=== PATIENT | female | born 1995 | race American Indian/Alaskan Native ===

== ENCOUNTER 2017-06-13 14:13 | Outpatient (CLI) | payer MEDICAID ==
[2017-06-13] MEDS ORDERED: CELESTONE SOLUSPAN IM SCH (15:00)
[2017-06-13] MEDS ORDERED: LACTATED RINGERS 500 ML IV ONE (15:00)
== END 2017-06-13 17:30 | disposition home or self-care (01) ==
LOC: TRG 14:13
PROVIDERS: ATTEND Obstetrics & Gynecology
DX: O47.02 False labor before 37 completed weeks of gestation, second trimester (principal); Z3A.32 32 weeks gestation of pregnancy
CPT/HCPCS: 59025; 96372; J0702

== ENCOUNTER 2017-06-14 16:47 | Outpatient (CLI) | payer MEDICAID ==
[2017-06-14] MEDS ORDERED: CELESTONE SOLUSPAN IM ONE ×2 (16:57→17:02)
[2017-06-14] MEDS ORDERED: LACTATED RINGERS 500 ML IV ONE (17:02)
== END 2017-06-14 17:15 | disposition home or self-care (01) ==
LOC: TRG 16:47
PROVIDERS: ATTEND Obstetrics & Gynecology
DX: O47.03 False labor before 37 completed weeks of gestation, third trimester (principal); Z3A.29 29 weeks gestation of pregnancy
CPT/HCPCS: 96372; J0702

== ENCOUNTER 2017-06-20 10:13 | Outpatient (CLI) | payer MEDICAID ==
[2017-06-20 10:32] VITALS: BP 111/56
[2017-06-20] MEDS ORDERED: LACTATED RINGERS 500 ML IV ONE (11:04)
[2017-06-20 11:24] LABS: Bilirubin,Urine NEG (Negative); Blood,Urine NEG (Negative); Ketones,Urine NEG (Negative); Leukocyte Esterase,Urine LG (Negative); Mucus,Urine 3+ /HPF; Nitrite,Urine NEG (Negative); Urobilinogen,Urine < 2.0 mg/dL (<2.0)
== END 2017-06-20 11:41 | disposition home or self-care (01) ==
LOC: TRG 10:13
PROVIDERS: ATTEND Obstetrics & Gynecology
DX: O47.03 False labor before 37 completed weeks of gestation, third trimester (principal); Z3A.29 29 weeks gestation of pregnancy
CPT/HCPCS: 59025; 81001

== ENCOUNTER 2017-07-10 10:19 | Outpatient (CLI) | payer MEDICAID ==
[2017-07-10] MEDS ORDERED: CELESTONE SOLUSPAN IM ONE (11:00)
== END 2017-07-10 11:10 | disposition home or self-care (01) ==
LOC: TRG 10:19
PROVIDERS: ATTEND Obstetrics & Gynecology
DX: O47.03 False labor before 37 completed weeks of gestation, third trimester (principal); Z3A.32 32 weeks gestation of pregnancy
CPT/HCPCS: 96372; J0702

== ENCOUNTER 2017-07-11 10:55 | Outpatient (CLI) | payer MEDICAID ==
[2017-07-11] MEDS ORDERED: CELESTONE SOLUSPAN IM ONE (11:35)
== END 2017-07-11 11:41 | disposition home or self-care (01) ==
LOC: TRG 10:55
PROVIDERS: ATTEND Obstetrics & Gynecology
DX: O47.03 False labor before 37 completed weeks of gestation, third trimester (principal); Z3A.32 32 weeks gestation of pregnancy
CPT/HCPCS: 96372; J0702

== ENCOUNTER 2017-07-12 09:47 | Observation (INO) | payer MEDICAID ==
[2017-07-12] MEDS ORDERED: LACTATED RINGERS 500 ML IV ONE (11:00)
[2017-07-12] MEDS ORDERED: CELESTONE SOLUSPAN IM ONE (13:30)
[2017-07-12] MEDS ORDERED: LACTATED RINGERS 2,000 ML ONE (13:53)
--- NOTE | 2017-07-12 13:54 | Ultrasound Report ---
BIOPHYSICAL PROFILE: Decreased motion. 0 - breathing movements 2 - movements 0 - posture and tone 2 - Qualitative amniotic fluid volume 4 - TOTAL SCORE OF POSSIBLE 8 Heart Rate (bpm) 133 Estimated age 30 weeks 3 days.
[2017-07-12 14:33] LABS: Hematocrit 31.1 % (30.3-42.9); Mean Corpuscular HGB Conc 32 % (30-34); Mean Corpuscular Volume 80 fl (79-97); Red Blood Count 3.91 M/mm3 (3.65-5.03); Red Cell Distribution Width 16.6 % (13.2-15.2)
[2017-07-12 14:44] LABS: Mean Corpuscular Hemoglobin 26 pg (28-32)
[2017-07-12 15:43] LABS: Basophils % (Manual) 0 % (0.0-1.8); Blastocytes % (Manual) 0 %; Eosinophils % (Manual) 0 % (0.0-4.3)
[2017-07-12 15:44] LABS: Anisocytosis 1+; Diff Status Complete; Poikilocytosis Few
[2017-07-12 15:45] LABS: Platelet Count 236 K/mm3 (140-440)
[2017-07-12 15:46] LABS: White Blood Count 13.4 K/mm3 (4.5-11.0)
[2017-07-12] MEDS ORDERED: LACTATED RINGERS 1,000 ML ONE (16:35)
[2017-07-12 16:53] VITALS: BP 90/46
--- NOTE | 2017-07-12 19:05 | History and Physical Report ---
History of Present Illness Date of examination: 07/12/17 Date of admission: 07/12/17 13:17 Chief complaint: decreased movement History of present illness: Pt is a 21 year old -Serbian female ELENA 09/03/17 at 32w3d who presents with "no movement" since last night. Upon entry to the unit, heart tones were present. She denies contractions, vaginal bleeding or leakage of fluid. She has had care at [facility] since 15 wks, h/o PPROM and delivery x 1, after 28 wk delivery in August 2016, obesity. She is receiving weekly progesterone injections and received steroids x 2 doses earlier this week. She is GBS unknown. Past History Past Medical History: no pertinent history Past Surgical History: cholecystectomy (09/13/16) Family/Genetic History: hypertension, cancer Social history: no significant social history - Obstetrical History Expected Date of Delivery: 09/03/17 Actual Gestation: 32 Week(s) 3 Day(s) : 3 Para: 2 Hx # Term Pregnancies: 0 Number of Pregnancies: 2 Spontaneous Abortions: 0 Induced : 0 Number of Living Children: 1 Medications and Allergies Allergies Allergy/AdvReac Type Severity Reaction Status Date / Time No Known Allergies Allergy Verified 07/12/17 12:57 Home Medications Medication Instructions Recorded Confirmed Last Taken Type Pnv with Ca,No.72/Iron/FA 1 tab PO DAILY 12/06/14 08/09/16 08/08/16 10:00 History [ Plus Tablet] Ibuprofen [Motrin 800 MG tab] 800 mg PO Q6H PRN #30 tablet 12/07/14 08/09/16 Unknown Rx HYDROcodone/APAP 5-325 [[place] 1 each PO Q6HR PRN #30 tablet 08/11/16 Unknown Rx 5/325] Ibuprofen [Motrin] 800 mg PO Q8HR PRN #60 tablet 08/11/16 Unknown Rx Review of Systems All systems: negative - Vital Signs Vital signs: Vital Signs Temp Pulse Resp BP Pulse Ox 98.4 F 88 18 115/53 98 07/12/17 10:35 07/12/17 10:35 07/12/17 10:35 07/12/17 10:35 07/12/17 10:35 Temp Pulse Resp BP Pulse Ox 98.6 F 108 H 18 90/46 98 10/05/17 16:30 07/12/17 17:41 07/12/17 10:35 07/12/17 16:55 07/12/17 17:41 - Physical Exam Breasts: Positive: deferred Cardiovascular: Regular rate Lungs: Positive: Clear to auscultation Abdomen: Positive: soft (obese, gravid ) Genitourinary (Female): Positive: normal external genitalia Uterus: Positive: enlarged (gravid ) Extremities: Positive: normal - Obstetrical FHR: category 2 Uterine Contraction Monitor Mode: External Results Result Diagrams: 07/12/17 13:42 Abnormal lab results 07/12/17 Range/Units 13:42 WBC 13.4 H (4.5-11.0) K/mm3 Hgb 10.0 L (10.1-14.3) gm/dl MCH 26 L (28-32) pg RDW 16.6 H (13.2-15.2) % Seg Neuts % (Manual) 80.0 H (40.0-70.0) % Lymphocytes % (Manual) 9.0 L (13.4-35.0) % Monocytes % (Manual) 11.0 H (0.0-7.3) % Seg Neutrophils # Man 0.0 L (1.8-7.7) K/mm3 Lymphocytes # (Manual) 0.0 L (1.2-5.4) K/mm3 All other labs normal. Assessment and Plan A: IUP at 32w3d Decreased movement BPP 4/8 H/o PPROM and Delivery Obesity H/o GBS unknown P: Admit for observation Repeat BPP in 4-6 hrs NPO
--- NOTE | 2017-07-12 19:13 | Event Note ---
Date: 07/12/17 Repeat BPP 03/15 (-2 for breathing, which is not unexpected secondary to recent steroid administration). NST reactive. Plan to discharge patient home with follow up in office on Sunday and .
--- NOTE | 2017-07-12 19:16 | Short Stay Summary ---
Short Stay Documentation Date of service: 07/12/17 - History H&P: dictated Social history: no significant social history - Allergies and Medications Current Medications: Allergies No Known Allergies Allergy (Verified 07/12/17 12:57) Home Medications Medication Instructions Recorded Confirmed Last Taken Type Pnv with Ca,No.72/Iron/FA 1 tab PO DAILY 12/06/14 08/09/16 08/08/16 10:00 History [ Plus Tablet] Ibuprofen [Motrin 800 MG tab] 800 mg PO Q6H PRN #30 tablet 12/07/14 08/09/16 Unknown Rx HYDROcodone/APAP 5-325 [[place] 1 each PO Q6HR PRN #30 tablet 08/11/16 Unknown Rx 5/325] Ibuprofen [Motrin] 800 mg PO Q8HR PRN #60 tablet 08/11/16 Unknown Rx - Physical exam Breasts: deferred - Hospital course Hospital course: Pt was admitted for observation and had two biophysical profiles and IV fluids during her hospital stay. She will follow up in office on Sunday, July 16, 2017. - Disposition Condition at discharge: Stable Disposition: DC-01 TO HOME OR SELFCARE - Discharge Diagnoses (1) Decreased movement Status: Acute Qualifiers: Fetus number: fetus 1 of multiple gestation Trimester: third trimester Qualified Code(s): O36.8131 - Decreased movements, third trimester, fetus 1 (2) Obesity affecting Status: Acute Qualifiers: Trimester: third trimester Qualified Code(s): O99.213 - Obesity complicating , third trimester (3) Status: Acute Qualifiers: Weeks of gestation: 32 weeks Qualified Code(s): Z3A.32 - 32 weeks gestation of Short Stay Discharge Plan Activity: no restrictions Weight Bearing Status: Full Weight Bearing Diet: regular Follow up with: OSMAN BERNAEB MD [Staff Physician] - 07/16/17
--- NOTE | 2017-07-13 11:10 | Ultrasound Report ---
BIOPHYSICAL PROFILE: 0 - breathing movements 2 - movements 2 - posture and tone 2 - Qualitative amniotic fluid volume 6 - TOTAL SCORE OF POSSIBLE 8 Heart Rate (bpm) 137 Gestation: Single Position: Cephalic Amniotic Fluid: ABRAHAM = 13 cm Placenta: Anterior Placental Grade: 1 Heart Rate: 137 BPM BPD: 715 cm = 30 w 1 d HC: 27.6 cm = 30 w 1 d AC: 27.9 cm = 32 w 0 d FL: 6.6 cm = 34 w 0 d HC/AC Ratio: 0.9 Cephalic Index: 85.8 Estimated Weight: 1930 grams Clinical age = 32 w 3 d EDC: 09/03/17 US Gest. Age = 31 w 4 d EDC: 09/09/17
--- NOTE | 2017-07-14 10:36 | Ultrasound Report ---
ULTRASOUND OB VELOCIMETRY UMBILICAL ARTERY History: Decreased movement Technique: Transabdominal ultrasound with spectral Doppler interrogation. Findings: 3 segments of the umbilical cord were evaluated. heart rate measures 137 beats per minute. The spectral waveforms are normal and persistent. No evidence for loss of end-diastolic flow. The S./D. ratio average measures 2.7. The resistive index average measures 0.64. Impression: No acute abnormality appreciated.
== END 2017-07-12 20:13 | disposition home or self-care (01) ==
LOC: TRG 09:47 → LD 13:17
PROVIDERS: ADMIT Obstetrics & Gynecology; ATTEND Obstetrics & Gynecology
DX: O36.8130 Decreased fetal movements, third trimester, not applicable or unspecified (principal); O99.213 Obesity complicating pregnancy, third trimester; Z3A.32 32 weeks gestation of pregnancy; Z82.49 Family history of ischemic heart disease and other diseases of the circulatory system; Z90.710 Acquired absence of both cervix and uterus
CPT/HCPCS: 36415; 76816; 76819; 76820; 85007; 85025; 86850; 86900; 86901; 96360; 96372; G0378; J0702; J7120

== ENCOUNTER 2017-07-24 10:20 | Observation (INO) | payer MEDICAID ==
[2017-07-24] MEDS ORDERED: AMBIEN PO PRN (10:57)
[2017-07-24] MEDS ORDERED: MILK OF MAGNESIA PO PRN (10:57)
[2017-07-24] MEDS ORDERED: BENADRYL PO PRN (10:57)
[2017-07-24] MEDS ORDERED: ROBITUSSIN DM PO PRN (10:57)
[2017-07-24] MEDS ORDERED: ZOFRAN IV PRN (10:57)
[2017-07-24] MEDS ORDERED: TYLENOL PO PRN (10:57)
[2017-07-24] MEDS ORDERED: DEEP SEA NS PRN (10:57)
[2017-07-24] MEDS ORDERED: MYLICON PO PRN (10:57)
[2017-07-24] MEDS ORDERED: COLACE PO PRN (10:57)
--- NOTE | 2017-07-24 10:57 | History and Physical Report ---
History of Present Illness Date of examination: 07/24/17 Chief complaint: sent from [facility] History of present illness: 21 year old -Maltese female ELENA 09/03/17 at 34w1d presents from [facility] clinic for secondary to low normal 7.11 cm, decreased movement and non -reactive NST for observation, IV hydration and repeat BPP in the AM. She denies vaginal bleeding or leakage of fluid. She denies regular contractions. She has had care at [facility] since 14 wks complicated by late entry to care, h/o PPROM and delivery x 2 with of second baby in 2016 and Morbid obesity. S/p betamethasone06/13 adn 06/14. She is GBS unknown. Past History Past Medical History: no pertinent history, other (obesity) Past Surgical History: cholecystectomy Family/Genetic History: hypertension, cancer Social history: no significant social history - Obstetrical History Expected Date of Delivery: 09/03/17 Actual Gestation: 34 Week(s) 1 Day(s) : 3 Para: 2 Hx # Term Pregnancies: 0 Number of Pregnancies: 2 Spontaneous Abortions: 0 Induced : 0 Number of Living Children: 1 Medications and Allergies Allergies Allergy/AdvReac Type Severity Reaction Status Date / Time No Known Allergies Allergy Verified 07/12/17 12:57 Home Medications Medication Instructions Recorded Confirmed Last Taken Type Pnv with Ca,No.72/Iron/FA 1 tab PO DAILY 12/06/14 08/09/16 08/08/16 10:00 History [ Plus Tablet] Ibuprofen [Motrin 800 MG tab] 800 mg PO Q6H PRN #30 tablet 12/07/14 08/09/16 Unknown Rx HYDROcodone/APAP 5-325 [[place] 1 each PO Q6HR PRN #30 tablet 08/11/16 Unknown Rx 5/325] Ibuprofen [Motrin] 800 mg PO Q8HR PRN #60 tablet 08/11/16 Unknown Rx Review of Systems All systems: negative - Physical Exam Breasts: Positive: deferred Cardiovascular: Regular rate Lungs: Positive: Clear to auscultation Abdomen: Positive: soft (gravid, obese) Uterus: Positive: enlarged (gravid) Extremities: Positive: normal Results Result Diagrams: 07/24/17 11:23 All other labs normal. Assessment and Plan A: IUP at 34w1d Decreased movement Low normal ABRAHAM Nonreactive NST H/o PPROM and delivery x 2 with one in 2016 on 17 hydroxy progesterone Morbid Obesity GBS unknown P: Admit for observation IV hydration Continuous monitoring Repeat BPP in AM MFM consult
[2017-07-24 11:43] LABS: Basophils % (Auto) 0.3 % (0.0-1.8); Eosinophils % (Auto) 0.4 % (0.0-4.3); Hematocrit 32.3 % (30.3-42.9); Hemoglobin 10.7 gm/dl (10.1-14.3); Mean Corpuscular HGB Conc 33 % (30-34); Mean Corpuscular Hemoglobin 26 pg (28-32); Mean Corpuscular Volume 78 fl (79-97); Platelet Count 196 K/mm3 (140-440); Red Blood Count 4.13 M/mm3 (3.65-5.03); White Blood Count 7.3 K/mm3 (4.5-11.0)
[2017-07-24] MEDS: LACTATED RINGERS 1,000 ML IV SCH ×2 (16:32→19:35)
[2017-07-25] MEDS: LACTATED RINGERS 1,000 ML IV SCH (01:37)
[2017-07-25 08:15] VITALS: BP 97/53
--- NOTE | 2017-07-25 08:45 | Ultrasound Report ---
ULTRASOUND BIOPHYSICAL PROFILE: History: well being, decreased movement Technique: Transabdominal ultrasound with Doppler interrogation. 2 - breathing movements 2 - movements 2 - posture and tone 2 - Qualitative amniotic fluid volume 8 - TOTAL SCORE OF POSSIBLE 8 Heart Rate (bpm) 125
--- NOTE | 2017-07-25 08:45 | Ultrasound Report ---
ULTRASOUND OB LIMITED History: well being, decreased movement Technique: Transabdominal ultrasound with Doppler interrogation. Gestation: Single Position: Cephalic Amniotic Fluid: Normal ABRAHAM = 13.5 cm Heart Rate: 141 BPM
[2017-07-25] MEDS ORDERED: PRENATAL VITAMIN PO SCH (10:00)
--- NOTE | 2017-07-25 11:45 | Consultation ---
History of Present Illness Reason for consult: other (Patient is ELENA 09/03/17 at 34w2d admitted from [facility] secondary to decreased ABRAHAM for EGA 7.11 cm, decreased movement and non-reactive NST for observation, IV hydration and repeat BPP in the AM. She denied vaginal bleeding or leakage of fluid She has had care at [facility] since 14 wks complicated by LPNC, h/o PPROM and delivery x 2 with of second baby in 2016 and Morbid obesity. S/p BMZ 06/13/17 and 06/14/17 . She is GBS status unknown. 07/25/17 [facility] consult Denies VB, ABD pain, LOF , and contractions . Patient admitts to [facility]. ) Past History Past Medical History: no pertinent history, other (obesity) Past Surgical History: cholecystectomy Family/Genetic History: hypertension, cancer - Obstetrical History : 3 Medications and Allergies Allergies Allergy/AdvReac Type Severity Reaction Status Date / Time No Known Allergies Allergy Verified 07/12/17 12:57 Home Medications Medication Instructions Recorded Confirmed Last Taken Type Pnv with Ca,No.72/Iron/FA 1 tab PO DAILY 12/06/14 07/24/17 07/24/17 History [ Plus Tablet] Active Meds: Active Medications Acetaminophen (Tylenol) 650 mg PO Q4H PRN PRN Reason: Pain MILD(1-3)/Fever >100.5/STEWART Diphenhydramine HCl (Benadryl) 25 mg PO Q6H PRN PRN Reason: Itching Docusate Sodium (Colace) 100 mg PO Q12H PRN PRN Reason: Constipation Guaifenesin (Robitussin Dm) 10 ml PO Q6H PRN PRN Reason: Cough Lactated Ringer's (Lactated Ringers) 1,000 mls @ 150 mls/hr IV DIRECT MER Last Admin: 07/25/17 01:37 Dose: 150 mls/hr Magnesium Hydroxide (Milk Of Magnesia) 30 ml PO QHS PRN PRN Reason: Laxative Effect Multivitamins/Iron/Calcium ( Vitamin) 1 each PO QDAY MER Last Admin: 07/25/17 10:03 Dose: 1 each Ondansetron HCl (Zofran) 4 mg IV Q6H PRN PRN Reason: Nausea And Vomiting Simethicone (Mylicon) 80 mg PO Q6H PRN PRN Reason: Gas pain Sodium Chloride (Deep Sea) 2 spray NS Q4H PRN PRN Reason: Congestion Zolpidem Tartrate (Ambien) 10 mg PO ONCE PRN PRN Reason: Sleep Last Admin: 07/24/17 21:35 Dose: 10 mg Review of Systems Constitutional: no fever Eyes: deferred Ears, nose, mouth and throat: deferred Cardiovascular: no chest pain, no shortness of breath Respiratory: no shortness of breath Gastrointestinal: no abdominal pain, no nausea, no vomiting Genitourinary: no vaginal bleeding, no vaginal discharge, no leakage of fluid, no contractions Rectal Exam: deferred Integumentary: no rash Neurological: no headaches Hematologic/Lymphatic: no easy bruising Allergic/Immunologic: no wheezing - Vital Signs Vital signs: Vital Signs Pulse Pulse Ox 108 H 99 07/24/17 11:03 07/24/17 11:03 Temp Pulse Resp BP Pulse Ox 98.1 F 96 H 16 97/53 97 07/25/17 08:11 07/25/17 08:17 07/25/17 08:11 07/25/17 08:17 07/25/17 08:16 - Physical Exam Breasts: Positive: deferred Cardiovascular: Regular rate Lungs: Positive: Normal air movement Abdomen: Negative: tenderness, guarding Uterus: Positive: other (gravid). Negative: tender Extremities: Positive: normal Deep Tendon Reflex Grade: Normal +2 - Obstetrical FHR: category 1 Uterine Contraction Monitor Mode: External Uterine Contraction Pattern: Absent Results Result Diagrams: 07/24/17 11:23 Abnormal lab results 07/24/17 Range/Units 11:23 MCV 78 L (79-97) fl MCH 26 L (28-32) pg RDW 17.0 H (13.2-15.2) % White % (Auto) 14.9 H (0.0-7.3) % White # 1.1 H (0.0-0.8) K/mm3 All other labs normal. Ultrasound: report reviewed (07/25/17 [facility] BPP 8/8 with ABRAHAM of 13.5 cm VTX + FHT 141 ( see chart for full consult) ) Assessment and Plan A: IUP at 34w2d Reported Decreased movement on 07/24/17 07/25/17 [facility] Reassuring ABRAHAM of 13.5 cm 07/25/17 [facility] BPP 05/15 CAT I tracing H/o PPROM and delivery x 2 with one in 2016 on 17 hydroxy progesterone Morbid Obesity AFM reported today P: February d/c home with precaution Close supervision with [facility] ( follow up in 3-4 days for [facility] surveillance) and OB Modify activities Continue increase PO hydration Kick counts Avoid caffeine consumption Co mangement with Dr Darrick Luna
--- NOTE | 2017-07-25 11:49 | Progress Note ---
Assessment and Plan IUP at 34w2d Decreased movement Low normal ABRAHAM Nonreactive NST H/o PPROM and delivery x 2 with one in 2016 on 17 hydroxy progesterone Morbid Obesity GBS unknown P: BPP / ABRAHAM normal 13 s/p hydration strict precatuions of ptl, pree, prom ad fkc reviewed Cat 1 strip d/c home to f/u with [facility] on Sunday ( 2 x weekly testing) Subjective - Subjective Date of service: 07/25/17 Principal diagnosis: Decreased movememnt hx of IUFD Patient reports: loss of fluid, movement normal, no new complaints, no vaginal bleeding, no contractions Objective - Vital Signs Vital Signs: Vital Signs - 12hr 07/24/17 07/24/17 07/25/17 23:50 23:55 00:00 Temperature Pulse Rate 93 H 97 H 98 H Respiratory Rate Blood Pressure Blood Pressure [Right] O2 Sat by Pulse 97 97 96 Oximetry 07/25/17 07/25/17 07/25/17 00:05 00:10 00:15 Temperature Pulse Rate 100 H 96 H 96 H Respiratory Rate Blood Pressure Blood Pressure [Right] O2 Sat by Pulse 96 96 97 Oximetry 07/25/17 07/25/17 07/25/17 00:22 00:27 00:32 Temperature Pulse Rate 107 H 94 H 93 H Respiratory Rate Blood Pressure Blood Pressure [Right] O2 Sat by Pulse 97 98 98 Oximetry 07/25/17 07/25/17 07/25/17 00:37 00:42 00:47 Temperature Pulse Rate 98 H 91 H 92 H Respiratory Rate Blood Pressure Blood Pressure [Right] O2 Sat by Pulse 98 98 97 Oximetry 07/25/17 07/25/17 07/25/17 00:52 00:57 01:02 Temperature Pulse Rate 98 H 90 111 H Respiratory Rate Blood Pressure Blood Pressure [Right] O2 Sat by Pulse 99 97 95 Oximetry 07/25/17 07/25/17 07/25/17 01:07 01:15 01:20 Temperature Pulse Rate 94 H 124 H 97 H Respiratory Rate Blood Pressure Blood Pressure [Right] O2 Sat by Pulse 99 100 97 Oximetry 07/25/17 07/25/17 07/25/17 01:25 01:30 01:33 Temperature 98.1 F Pulse Rate 97 H 95 H Respiratory 20 Rate Blood Pressure Blood Pressure [Right] O2 Sat by Pulse 97 96 Oximetry 07/25/17 07/25/17 07/25/17 01:35 01:36 01:40 Temperature Pulse Rate 102 H 100 H 93 H Respiratory Rate Blood Pressure 98/57 Blood Pressure [Right] O2 Sat by Pulse 97 96 Oximetry 07/25/17 07/25/17 07/25/17 01:45 01:50 01:55 Temperature Pulse Rate 93 H 94 H 92 H Respiratory Rate Blood Pressure Blood Pressure [Right] O2 Sat by Pulse 95 96 96 Oximetry 07/25/17 07/25/17 07/25/17 02:00 02:05 02:10 Temperature Pulse Rate 93 H 96 H 94 H Respiratory Rate Blood Pressure Blood Pressure [Right] O2 Sat by Pulse 97 95 96 Oximetry 07/25/17 07/25/17 07/25/17 02:15 02:20 02:23 Temperature Pulse Rate 97 H 100 H 98 H Respiratory Rate Blood Pressure Blood Pressure [Right] O2 Sat by Pulse 96 95 94 Oximetry 07/25/17 07/25/17 07/25/17 02:29 02:34 02:39 Temperature Pulse Rate 103 H 98 H 87 Respiratory Rate Blood Pressure Blood Pressure [Right] O2 Sat by Pulse 99 96 96 Oximetry 07/25/17 07/25/17 07/25/17 02:44 02:45 02:49 Temperature Pulse Rate 98 H 96 H 97 H Respiratory Rate Blood Pressure Blood Pressure [Right] O2 Sat by Pulse 95 94 94 Oximetry 07/25/17 07/25/17 07/25/17 02:52 02:54 02:59 Temperature Pulse Rate 99 H 104 H 97 H Respiratory Rate Blood Pressure Blood Pressure [Right] O2 Sat by Pulse 93 97 96 Oximetry 07/25/17 07/25/17 07/25/17 03:04 03:05 03:09 Temperature Pulse Rate 98 H 100 H 96 H Respiratory Rate Blood Pressure Blood Pressure [Right] O2 Sat by Pulse 96 94 95 Oximetry 07/25/17 07/25/17 07/25/17 03:14 03:19 03:24 Temperature Pulse Rate 99 H 97 H 113 H Respiratory Rate Blood Pressure Blood Pressure [Right] O2 Sat by Pulse 96 95 96 Oximetry 07/25/17 07/25/17 07/25/17 03:29 03:34 03:39 Temperature Pulse Rate 109 H 102 H 98 H Respiratory Rate Blood Pressure Blood Pressure [Right] O2 Sat by Pulse 99 97 97 Oximetry 07/25/17 07/25/17 07/25/17 03:44 03:50 03:55 Temperature Pulse Rate 104 H 101 H 96 H Respiratory Rate Blood Pressure Blood Pressure [Right] O2 Sat by Pulse 97 98 98 Oximetry 07/25/17 07/25/17 07/25/17 04:00 04:05 04:10 Temperature Pulse Rate 100 H 102 H 102 H Respiratory Rate Blood Pressure Blood Pressure [Right] O2 Sat by Pulse 98 97 98 Oximetry 07/25/17 07/25/17 07/25/17 04:15 04:20 04:24 Temperature Pulse Rate 104 H 101 H 108 H Respiratory Rate Blood Pressure Blood Pressure [Right] O2 Sat by Pulse 97 97 98 Oximetry 07/25/17 07/25/17 07/25/17 04:33 04:38 04:43 Temperature Pulse Rate 107 H 96 H 97 H Respiratory Rate Blood Pressure Blood Pressure [Right] O2 Sat by Pulse 98 96 96 Oximetry 07/25/17 07/25/17 07/25/17 04:48 04:53 04:58 Temperature 98.2 F Pulse Rate 103 H 99 H 99 H Respiratory 22 Rate Blood Pressure Blood Pressure [Right] O2 Sat by Pulse 96 97 97 Oximetry 07/25/17 07/25/17 07/25/17 05:01 05:03 05:08 Temperature Pulse Rate 100 H 97 H 93 H Respiratory Rate Blood Pressure 104/52 Blood Pressure [Right] O2 Sat by Pulse 96 97 Oximetry 07/25/17 07/25/17 07/25/17 05:13 05:19 05:24 Temperature Pulse Rate 103 H 100 H 102 H Respiratory Rate Blood Pressure Blood Pressure [Right] O2 Sat by Pulse 97 98 97 Oximetry 07/25/17 07/25/17 07/25/17 05:29 05:34 05:39 Temperature Pulse Rate 98 H 101 H 94 H Respiratory Rate Blood Pressure Blood Pressure [Right] O2 Sat by Pulse 97 96 97 Oximetry 07/25/17 07/25/17 07/25/17 05:44 05:49 05:54 Temperature Pulse Rate 101 H 90 97 H Respiratory Rate Blood Pressure Blood Pressure [Right] O2 Sat by Pulse 96 96 97 Oximetry 07/25/17 07/25/17 07/25/17 05:59 06:04 06:09 Temperature Pulse Rate 90 89 96 H Respiratory Rate Blood Pressure Blood Pressure [Right] O2 Sat by Pulse 97 96 97 Oximetry 07/25/17 07/25/17 07/25/17 06:14 06:19 06:24 Temperature Pulse Rate 95 H 96 H 96 H Respiratory Rate Blood Pressure Blood Pressure [Right] O2 Sat by Pulse 97 97 96 Oximetry 07/25/17 07/25/17 07/25/17 06:48 06:53 06:58 Temperature Pulse Rate 98 H 95 H 95 H Respiratory Rate Blood Pressure Blood Pressure [Right] O2 Sat by Pulse 98 97 97 Oximetry 07/25/17 07/25/17 07/25/17 07:03 07:08 07:13 Temperature Pulse Rate 92 H 94 H 92 H Respiratory Rate Blood Pressure Blood Pressure [Right] O2 Sat by Pulse 96 97 97 Oximetry 07/25/17 07/25/17 07/25/17 07:18 07:23 07:28 Temperature Pulse Rate 91 H 94 H 91 H Respiratory Rate Blood Pressure Blood Pressure [Right] O2 Sat by Pulse 97 96 96 Oximetry 07/25/17 07/25/17 07/25/17 07:33 07:38 07:43 Temperature Pulse Rate 87 98 H 97 H Respiratory Rate Blood Pressure Blood Pressure [Right] O2 Sat by Pulse 97 96 97 Oximetry 07/25/17 07/25/17 07/25/17 07:44 07:48 07:53 Temperature Pulse Rate 97 H 113 H 109 H Respiratory Rate Blood Pressure Blood Pressure [Right] O2 Sat by Pulse 93 98 99 Oximetry 07/25/17 07/25/17 07/25/17 08:01 08:06 08:11 Temperature 98.1 F Pulse Rate 94 H 92 H 97 H Respiratory 16 Rate Blood Pressure Blood Pressure 97/53 [Right] O2 Sat by Pulse 99 97 97 Oximetry 07/25/17 07/25/17 08:16 08:17 Temperature Pulse Rate 96 H 96 H Respiratory Rate Blood Pressure 97/53 Blood Pressure [Right] O2 Sat by Pulse 97 Oximetry - Exam Breasts: normal Cardiovascular: Regular rate, Normal S1 Lungs: Clear to auscultation, Normal air movement Abdomen: Present: normal appearance, soft, normal bowel sounds. Absent: distention, tenderness, guarding Vulva: both: normal Uterus: Present: normal, firm, fundal height above umbilicus FHR: category 1 Uterine Contraction Pattern: Absent Uterine Tone Measurement Phase: Resting Deep Tendon Reflex Grade: Normal +2 - Labs Labs: Abnormal Labs 07/24/17 11:23 MCV 78 L MCH 26 L RDW 17.0 H [place] % (Auto) 14.9 H [place] # 1.1 H Laboratory Results - last 24 hr 07/24/17 11:27 Antibody Screen Negative
--- NOTE | 2017-07-25 11:51 | Discharge Summary ---
Providers - Providers Date of Admission: 07/24/17 10:57 Date of discharge: 07/25/17 Attending physician: OSMAN BERNABE 07/25/17 07:00 Consult to Physician [CONS] Routine Consulting Provider: ESTEE HUSAIN Reason For Exam: IUP at 34 wks, decreased FM, low normal ABRAHAM Place consult to:: HERLINDA Notified:: MARAL Phone number called:: [phone] Was contact made?: Yes If yes, spoke with:: MARAL Time called:: 08:45 Primary care physician: OSMAN BERNABE Hospitalization Reason for admission: other (decreased FM ) Discharge diagnosis: other (Patient had BPP 05/15 abraham 13. cat 1 strip. f/u with MFM on Sunday. Strict precatuions given ) Condition at discharge: Good Disposition: DC-01 TO HOME OR SELFCARE Plan - Provider Discharge Summary Additional instructions: [] Smoking cessation referral if applicable(refer to patient education folder for contact #) [] Refer to [facility]'s [facility] Booklet Call your doctor immediately for: * Fever > 100.5 * Heavy vaginal bleeding ( >1 pad per hour) * Severe persistent headache * Shortness of breath * Reddened, hot, painful area to leg or breast * Drainage or odor from incision. * Keep incision clean and dry at all times and follow doctor's instructions regarding bathing/showering - Follow up plan Follow up: OSMAN BERNABE MD [Primary Care Provider] - 7 Days
== END 2017-07-25 12:33 | disposition home or self-care (01) ==
LOC: TRG 10:20 → LD 10:21 → TRG 10:57
PROVIDERS: ADMIT Obstetrics & Gynecology; ATTEND Obstetrics & Gynecology
DX: O36.8130 Decreased fetal movements, third trimester, not applicable or unspecified (principal); O99.213 Obesity complicating pregnancy, third trimester; Z3A.34 34 weeks gestation of pregnancy; Z90.49 Acquired absence of other specified parts of digestive tract; Z82.49 Family history of ischemic heart disease and other diseases of the circulatory system; Z80.9 Family history of malignant neoplasm, unspecified
CPT/HCPCS: 36415; 76815; 76819; 85025; 86850; 86900; 86901; 96360; 96361; G0378; J7120

== ENCOUNTER 2017-07-30 10:59 | Outpatient (CLI) | payer MEDICAID ==
[2017-07-30 11:29] VITALS: BP 97/49
[2017-07-30 12:51] LABS: Bacteria,Urine 1+ /HPF (Negative); Bilirubin,Urine NEG (Negative); Blood,Urine NEG (Negative); Ketones,Urine NEG (Negative); Leukocyte Esterase,Urine LG (Negative); Mucus,Urine 3+ /HPF; Nitrite,Urine NEG (Negative); Protein,Urine <15 mg/dL mg/dL (Negative)
--- NOTE | 2017-07-30 12:51 | Ultrasound Report ---
BIOPHYSICAL PROFILE: INDICATION: well being, decreased movement. COMPARISON: 07/25/2017. TECHNIQUE: Transabdominal ultrasound with Doppler interrogation. 2 - breathing movements 2 - movements 2 - posture and tone 2 - Qualitative amniotic fluid volume 8 - TOTAL SCORE OF POSSIBLE 8 Heart Rate (bpm) 133 CONCLUSION: Findings, as above.
--- NOTE | 2017-07-30 12:53 | Ultrasound Report ---
OB LIMITED INDICATION: well being, decreased movement, ABRAHAM. COMPARISON: 07/25/2017 TECHNIQUE: Transabdominal grayscale ultrasound with Doppler interrogation. Gestation: [place] Position: Cephalic Amniotic Fluid: WNL (7-24 cm) ABRAHAM = 7.3 cm Heart Rate: 133 BPM CONCLUSION: Findings, as above.
--- NOTE | 2017-07-30 12:56 | Ultrasound Report ---
ULTRASOUND OB VELOCIMETRY UMBILICAL ARTERY: HISTORY: well-being, decreased movement. COMPARISON: 07/12/2017. FINDINGS: Transabdominal imaging with spectral Doppler interrogation. 3 separate segments of the cord were evaluated. heart rate measures 133 beats per minute. Free loop S/D ratio in the examined loops are 2.92, 3.07 and 2.66 with average S/D ratio = 2.88. Normal waveform. Flow pattern is persistent. Free loop RI in the examined loops are 0.66, 0.67 and 0.62 with average RI= 0.65. Normal waveform. Flow pattern is persistent. CONCLUSION: Normal and persistent spectral waveforms are demonstrated throughout. The S/D ratio average measures 2.88. The resistive index average measures 0.65. Thank you for the opportunity to participate in this patient's care.
== END 2017-07-30 12:55 | disposition home or self-care (01) ==
LOC: TRG 10:59
PROVIDERS: ATTEND Obstetrics & Gynecology
DX: O36.8130 Decreased fetal movements, third trimester, not applicable or unspecified (principal); O47.03 False labor before 37 completed weeks of gestation, third trimester; Z3A.35 35 weeks gestation of pregnancy
CPT/HCPCS: 59025; 76815; 76819; 76820; 81001

== ENCOUNTER 2017-08-20 11:00 | Inpatient (IN) | payer MEDICAID ==
[2017-08-20] MEDS ORDERED: PITOCin/NS 20 UNIT/1000ML DRIP 20 UNITS/1,000 ML BAG IV SCH (14:00)
[2017-08-20] MEDS ORDERED: LACTATED RINGERS 1,000 ML IV SCH ×2 (14:00)
[2017-08-20] MEDS ORDERED: XYLOCAINE 2% INFILTRATI ONE (14:00)
--- NOTE | 2017-08-20 14:10 | History and Physical Report ---
History of Present Illness Date of examination: 08/20/17 Date of admission: 08/20/17 11:00 Chief complaint: decreased amniotic fluid History of present illness: 22y/o @ 38+0 weeks presents with findings of oligohydramnios during her evaluation with [facility]. Her course is complicated by 2 prior deliveries at 33 & 27 weeks. She has had a demise secondary to complications associated with prematurity. The patient has received 17-P during this along with betamethasone injections on 06/13 & 06/14. The patient was sent to L&D for induction. GBS negative. Past History Past Medical History: no pertinent history Past Surgical History: cholecystectomy Social history: single - Obstetrical History Expected Date of Delivery: 09/03/17 Actual Gestation: 38 Week(s) 0 Day(s) : 3 Para: 2 Hx # Term Pregnancies: 0 Number of Pregnancies: 2 Spontaneous Abortions: 0 Induced : 0 Number of Living Children: 1 Medications and Allergies Allergies Allergy/AdvReac Type Severity Reaction Status Date / Time No Known Allergies Allergy Verified 07/12/17 12:57 Home Medications Medication Instructions Recorded Confirmed Last Taken Type Pnv with Ca,No.72/Iron/FA 1 tab PO DAILY 12/06/14 08/20/17 08/20/17 History [ Plus Tablet] Active Meds: Active Medications Butorphanol Tartrate (Stadol) 2 mg IV Q2H PRN PRN Reason: Pain , Severe (7-10) Ephedrine Sulfate (Ephedrine Sulfate) 10 mg IV Q2M PRN PRN Reason: Hypotension Stop: 08/20/17 14:05 Lactated Ringer's (Lactated Ringers) 1,000 mls @ 125 mls/hr IV DIRECT MER Misoprostol (Cytotec) 25 mcg VG Q4H PRN PRN Reason: Cervical Ripening Review of Systems All systems: negative Genitourinary: no leakage of fluid - Vital Signs Vital signs: Vital Signs Temp Pulse Resp BP Pulse Ox 97.8 F 110 H 18 111/64 98 08/20/17 11:52 08/20/17 11:52 08/20/17 11:52 08/20/17 11:52 08/20/17 11:52 Temp Pulse Resp BP Pulse Ox 97.8 F 110 H 18 111/64 98 08/20/17 11:52 11/13/17 11:55 08/20/17 11:52 08/20/17 11:55 08/20/17 11:52 - Physical Exam Breasts: Positive: deferred Cardiovascular: Regular rate Lungs: Positive: Clear to auscultation Abdomen: Positive: normal appearance Results All other labs normal. Assessment and Plan - Patient Problems (1) Oligohydramnios Current Visit: Yes Status: Acute Qualifiers: Fetus number: F Trimester: T Plan to address problem: admit for induction of labor
[2017-08-20 14:24] LABS: Hematocrit 32.6 % (30.3-42.9); Hemoglobin 10.6 gm/dl (10.1-14.3); Mean Corpuscular HGB Conc 33 % (30-34); Mean Corpuscular Volume 78 fl (79-97); Platelet Count 182 K/mm3 (140-440); Red Blood Count 4.16 M/mm3 (3.65-5.03); Red Cell Distribution Width 17.7 % (13.2-15.2); White Blood Count 5.4 K/mm3 (4.5-11.0)
[2017-08-20 14:32] LABS: Mean Corpuscular Hemoglobin 26 pg (28-32)
[2017-08-20] MEDS ORDERED: BRETHINE IVP PRN (15:00)
[2017-08-20] MEDS: CYTOTEC VG PRN ×2 (15:00→18:55)
[2017-08-20] MEDS ORDERED: PITOCin/NS 30 UNIT/500ML 30 UNITS/500 ML BAG IV SCH (15:00)
[2017-08-20] MEDS ORDERED: STADOL IV PRN (15:00)
[2017-08-20] MEDS ORDERED: BRETHINE SUB-Q PRN (15:00)
[2017-08-20] MEDS ORDERED: ePHEDrine SULFATE IV PRN (15:00)
[2017-08-20] MEDS ORDERED: MINERAL OIL PO PRN (22:00)
[2017-08-21] MEDS ORDERED: METHERGINE IM ONE ×2 (12:50→12:56)
--- NOTE | 2017-08-21 12:56 | Procedure Note ---
OB Delivery Note - Delivery Date of Delivery: 08/21/17 (7.0oz male @ 1234) Surgeon: YANIRA SOSA Estimated blood loss: 300cc - Vaginal Delivery presentation: vertex Delivery position: OA Intrapartum events: hydramnios (oligo) Delivery induction: misoprostol Delivery augmentation: pitocin Delivery monitor: external FHT, external uterine, internal FHT Route of delivery: Delivery placenta: spontaneous Delivery cord: 3 umbilical vessels Delivery laceration: 1st degree (vaginal, approximates, hemostatis, no stitches) Anesthesia: none - A at 1 minute: 8 at 5 minutes: 9 Gender: Male (Pushed to complete. Spont. cry. Dried and placed skin to skin. Spont. placenta, trailing membranes, gently teased. FF2 below U, ML. Pitocin infusing. Bleeding continious flow, fundus messagesd to firm. Bleeding scant. Methergine 0.2mg IM given.)
[2017-08-21] MEDS: NORCO 5/325 PO PRN ×2 (13:06→20:30)
[2017-08-21] MEDS: MOTRIN PO PRN ×2 (13:07→20:30)
--- NOTE | 2017-08-22 07:41 | Progress Note ---
Assessment and Plan - Patient Problems (1) Oligohydramnios Current Visit: Yes Status: Acute Qualifiers: Fetus number: F Trimester: T Plan to address problem: Patient doing well Discharge home Subjective - Subjective Date of service: 08/22/17 Interval history: The patient is without any significant complaints today. She is tolerating a regular diet without complication. Her pain is well-controlled. Patient reports: appetite normal, voiding normally, pain well controlled [place]: doing well Objective - Vital Signs Latest vital signs: Vital Signs Temp Pulse Resp BP BP Pulse Ox 08/22/17 04:30 98.6 F 77 18 121/78 08/22/17 00:30 98.6 F 69 16 101/78 08/21/17 19:30 98.6 F 69 18 101/76 08/21/17 16:05 98.0 F 88 18 114/67 08/21/17 13:16 76 125/70 08/21/17 12:54 85 99 08/21/17 12:49 87 118/56 99 08/21/17 12:26 73 98 08/21/17 12:21 73 100 08/21/17 12:16 89 97 08/21/17 12:11 91 H 100 08/21/17 12:06 81 98 08/21/17 12:01 97 H 98 08/21/17 11:56 63 96 08/21/17 11:51 73 95 08/21/17 11:46 74 97 08/21/17 11:41 66 97 08/21/17 11:36 88 99 08/21/17 11:31 94 H 96 08/21/17 11:26 66 99 08/21/17 11:21 83 100 08/21/17 11:16 71 96 08/21/17 11:11 68 97 08/21/17 11:06 57 L 100 08/21/17 11:01 95 H 95 08/21/17 10:56 62 96 08/21/17 10:51 69 98 08/21/17 10:46 86 96 08/21/17 10:41 65 97 08/21/17 10:36 89 96 08/21/17 10:31 71 96 08/21/17 10:25 76 97 08/21/17 10:21 62 98 08/21/17 10:16 67 97 08/21/17 10:11 85 96 08/21/17 10:06 87 96 08/21/17 10:01 88 96 08/21/17 09:56 71 95 08/21/17 09:51 72 96 08/21/17 09:46 74 97 08/21/17 09:41 75 96 08/21/17 09:36 76 97 08/21/17 09:30 67 96 08/21/17 09:26 73 95 08/21/17 09:20 79 97 08/21/17 09:16 91 H 96 08/21/17 09:11 81 95 08/21/17 09:06 87 94 08/21/17 09:01 78 96 08/21/17 08:56 79 95 08/21/17 08:51 71 94 08/21/17 08:50 65 94 Intake and Output 08/21/17 08/22/17 08/22/17 22:59 06:59 14:59 Intake Total 660 450 Output Total 300 800 Balance 360 -350 Intake: Oral 360 450 Intake, Free Water 300 Output: Urine 300 800 Void 300 800 Other: Total, Intake Amount 360 200 Total, Output Amount 200 800 # Voids Void 1 1 - Exam Abdomen: Present: normal appearance, soft Uterus: Present: normal, firm
--- NOTE | 2017-08-22 07:42 | Discharge Summary ---
Providers - Providers Date of Admission: 08/20/17 11:00 Date of discharge: 08/22/17 Attending physician: TIM BARNETT Primary care physician: TIM BARNETT Hospitalization Reason for admission: induction of labor Delivery: Other procedures: none complications: none Discharge diagnosis: IUP at term delivered baby: male Hospital course: The patient was admitted for induction of labor secondary to oligohydramnios. The patient had a successful vaginal delivery. Her course was uncomplicated. Condition at discharge: Good Disposition: DC-01 TO HOME OR SELFCARE - Discharge Diagnoses (1) Oligohydramnios Status: Acute Qualifiers: Fetus number: F Trimester: T Plan - Discharge Medications Prescriptions: HYDROcodone/APAP 5-325 [[place] 5/325] 1 each PO Q6HR PRN #30 tablet PRN Reason: Pain Ibuprofen [Motrin] 800 mg PO Q8HR PRN #60 tablet PRN Reason: Pain - Provider Discharge Summary Activity: no sex for 6 weeks, no heavy lifting 4 weeks, no strenuous exercise Diet: routine Instructions: routine Additional instructions: [] Smoking cessation referral if applicable(refer to patient education folder for contact #) [] Refer to [facility] Booklet Call your doctor immediately for: * Fever > 100.5 * Heavy vaginal bleeding ( >1 pad per hour) * Severe persistent headache * Shortness of breath * Reddened, hot, painful area to leg or breast * Follow-up in 4 weeks for visit - Follow up plan
[2017-08-22 09:00] VITALS: BP 121/72
== END 2017-08-22 15:06 | disposition home or self-care (01) | DRG 775 ==
LOC: LD 11:00 → OB 08-21 15:52
PROVIDERS: ADMIT Obstetrics & Gynecology; ATTEND Obstetrics & Gynecology
PROC: 10E0XZZ Delivery of Products of Conception, External Approach (ICD-10-PCS; principal; 2017-08-20)
DX: O41.03X0 Oligohydramnios, third trimester, not applicable or unspecified (principal); O70.0 First degree perineal laceration during delivery; Z3A.38 38 weeks gestation of pregnancy; Z37.0 Single live birth; Z90.49 Acquired absence of other specified parts of digestive tract
CPT/HCPCS: 36415; 85027; 86592; 86850; 86900; 86901; 88307; 99211; G0463; J0595; J2210; J2590; J7120

== ENCOUNTER 2020-10-29 15:09 | Emergency (ER) | payer MEDICAID, SELFPAY ==
[2020-10-29 16:14] LABS: Hematocrit 40.4 % (30.3-42.9); Hemoglobin 13.3 gm/dl (10.1-14.3); Mean Corpuscular HGB Conc 33 % (30-34); Mean Corpuscular Volume 88 fl (79-97); Platelet Count 291 K/mm3 (140-440); Red Blood Count 4.62 M/mm3 (3.65-5.03); Red Cell Distribution Width 14.5 % (13.2-15.2)
[2020-10-29 16:39] LABS: Alanine Aminotransferase 18 units/L (7-56); Albumin 3.9 g/dL (3.9-5); BUN/Creatinine Ratio 8; Blood Urea Nitrogen 7 mg/dL (7-17); Hemolysis Index 6
--- NOTE | 2020-10-29 17:23 | Ultrasound Report ---
US OB <= 14 weeks fetus INDICATION / CLINICAL INFORMATION: Ectopic . COMPARISON: None available. FINDINGS: No intrauterine is seen. Adjacent to the right ovary is a 2.5 cm complex mass with increase d vascularity. The left ovary is normal. IMPRESSION: 2.5 cm complex mass with increased vascularity adjacent to the right ovary. An ectopic shar ot be excluded CRITICAL RESULT: Time of Discovery: 1605 central time Time of Communication: 1617 central time Licensed Practitioner Receiving Report: Tasha Camilo RN Read Back Performed: Yes. Signer Name: Nitish Benjamin MD FACR Signed: 10/29/2020 5:19 PM Workstation Name: [id number]
--- NOTE | 2020-10-29 17:26 | Ultrasound Report ---
ULTRASOUND OBSTETRIC INDICATION / CLINICAL INFORMATION: Ectopic . Clinical Gestational Age (GA): 8 weeks 5 days TECHNIQUE: Transvaginal. COMPARISON: None available. FINDINGS: UTERUS: The uterus is anteverted and anteflexed and normal in appearance. The endometrium is within n ormal limits, measuring up to 4 mm in thickness. There is no evidence of intrauterine gestational sac . ADNEXA: The left ovary is unremarkable in appearance. A corpus luteum is identified within the right ovary. There is a complex mass adjacent to the right ovary measuring up to approximately 2.5 x 2.0 cm . There is a central cystic component measuring up to 9 mm which may reflect a gestational sac. No de finite yolk sac or pole are identified within the cystic component. FREE FLUID: Trace pelvic free fluid. ADDITIONAL FINDINGS: None. IMPRESSION: 1. A complex mass adjacent to the right ovary is suggestive of an ectopic . No sonographic e vidence for rupture. The above finding was discussed with TERESSA Palafox, at 4:19 PM central time on 10/29/2020. Signer Name: Elayne Nieves MD Signed: 10/29/2020 5:22 PM Workstation Name: [id number]
[2020-10-29 18:25] LABS: Total Cells Counted 100
[2020-10-29 18:27] LABS: Eosinophils % (Manual) 0 % (0.0-4.3)
[2020-10-29 18:31] LABS: Platelet Estimate Consistent w Auto
[2020-10-29 18:34] LABS: Anisocytosis Few; Large Platelets Few
--- NOTE | 2020-10-29 18:34 | Emergency Department Report ---
ED HPI - General Chief complaint: Abdominal Pain Stated complaint: POSSIBLE ECTOPIC Time Seen by Provider: 10/29/20 17:21 Source: patient Mode of arrival: Ambulatory Limitations: No Limitations - History of Present Illness Initial comments: Patient is a 25-year-old F [place] female who is in the early stages of who has been recently having her hCG trended. Patient has had some right lower quadrant pain. Between 10/13/2020 and 10/20/2020 her quant only genoveva from 3 69-60 579. Patient had no IUP seen at those times. Patient was sent in for concern for ectopic . Has some right lower quadrant discomfort. Dr. Vipin Bernabe her COMMUNICATIONS EDITOR wanted her to receive methotrexate. Patient's pain is estimated 4 out of 10 in severity. She denies any vaginal bleeding fevers chills nausea vomiting or diarrhea. - Related Data Home Medications Medication Instructions Recorded Confirmed Last Taken Pnv with Ca,No.72/Iron/FA 1 tab PO DAILY 12/06/14 08/20/17 08/20/17 [ Plus Tablet] Previous Rx's Medication Instructions Recorded Last Taken Type HYDROcodone/APAP 5-325 [[place] 1 each PO Q6HR PRN #30 tablet 08/22/17 Unknown Rx 5/325] Ibuprofen [Motrin] 800 mg PO Q8HR PRN #60 tablet 08/22/17 Unknown Rx Allergies Allergy/AdvReac Type Severity Reaction Status Date / Time No Known Allergies Allergy Verified 07/12/17 12:57 ED Review of Systems ROS: Stated complaint: POSSIBLE ECTOPIC Other details as noted in HPI Comment: All other systems reviewed and negative ED Past Medical Hx - Past Medical History Previous Medical History?: No Hx Hypertension: No Hx Congestive Heart Failure: No Hx Diabetes: No Hx Deep Vein Thrombosis: No Hx Renal Disease: No Hx Sickle Cell Disease: No Hx Seizures: No Hx Asthma: No Hx COPD: No Hx HIV: No - Surgical History Past Surgical History?: No - Social History Smoking Status: Never Smoker Substance Use Type: None - Medications Home Medications: Home Medications Medication Instructions Recorded Confirmed Last Taken Type Pnv with Ca,No.72/Iron/FA 1 tab PO DAILY 12/06/14 08/20/17 08/20/17 History [ Plus Tablet] HYDROcodone/APAP 5-325 [[place] 1 each PO Q6HR PRN #30 tablet 08/22/17 Unknown Rx 5/325] Ibuprofen [Motrin] 800 mg PO Q8HR PRN #60 tablet 08/22/17 Unknown Rx ED Physical Exam - General Limitations: No Limitations General appearance: alert, in no apparent distress - Head Head exam: Present: atraumatic, normocephalic - Eye Eye exam: Present: normal appearance, PERRL, EOMI - ENT ENT exam: Present: mucous membranes moist - Neck Neck exam: Present: normal inspection - Respiratory Respiratory exam: Present: normal lung sounds bilaterally. Absent: respiratory distress, wheezes, rales, rhonchi - Cardiovascular Cardiovascular Exam: Present: regular rate, normal rhythm, normal heart sounds. Absent: systolic murmur, diastolic murmur, rubs, gallop - GI/Abdominal GI/Abdominal exam: Present: soft, tenderness (Mild right lower quadrant), normal bowel sounds. Absent: distended, guarding, rebound, rigid - Extremities Exam Extremities exam: Present: normal inspection - Back Exam Back exam: Present: normal inspection - Neurological Exam Neurological exam: Present: alert, oriented X3 - Psychiatric Psychiatric exam: Present: normal affect, normal mood - Skin Skin exam: Present: warm, dry, intact, normal color. Absent: rash ED Course Vital Signs 10/29/20 10/29/20 15:15 15:33 Temperature 98.8 F Pulse Rate 110 H Respiratory 18 18 Rate Blood Pressure 137/88 O2 Sat by Pulse 98 Oximetry ED Medical Decision Making - Lab Data Result diagrams: 10/29/20 15:42 10/29/20 15:42 Lab Results 10/29/20 10/29/20 10/29/20 Range/Units 15:42 15:42 15:42 WBC 3.3 L (4.5-11.0) K/mm3 RBC 4.62 (3.65-5.03) M/mm3 Hgb 13.3 (10.1-14.3) gm/dl Hct 40.4 (30.3-42.9) % MCV 88 (79-97) fl MCH 29 (28-32) pg MCHC 33 (30-34) % RDW 14.5 (13.2-15.2) % Plt Count 291 (140-440) K/mm3 [place] % (Auto) Chief Juvenile Probation Officer Seg Neutrophils % Chief Juvenile Probation Officer Sodium 139 (137-145) mmol/L Potassium 4.0 (3.6-5.0) mmol/L Chloride 103.9 (98-107) mmol/L Carbon Dioxide 29 (22-30) mmol/L Anion Gap 10 mmol/L BUN 7 (7-17) mg/dL Creatinine 0.9 (0.6-1.2) mg/dL Estimated GFR > 60 ml/min BUN/Creatinine Ratio 8 % Glucose 96 (65-100) mg/dL Calcium 9.0 (8.4-10.2) mg/dL Total Bilirubin 0.20 (0.1-1.2) mg/dL AST 17 (5-40) units/L ALT 18 (7-56) units/L Alkaline Phosphatase 78 (35-129) units/L Total Protein 7.0 (6.3-8.2) g/dL Albumin 3.9 (3.9-5) g/dL Albumin/Globulin Ratio 1.3 % HCG, Quant 248.1 H (0-4) mIU/mL Blood Type 10/29/20 Range/Units 15:42 WBC (4.5-11.0) K/mm3 RBC (3.65-5.03) M/mm3 Hgb (10.1-14.3) gm/dl Hct (30.3-42.9) % MCV (79-97) fl MCH (28-32) pg MCHC (30-34) % RDW (13.2-15.2) % Plt Count (140-440) K/mm3 [place] % (Auto) Seg Neutrophils % Sodium (137-145) mmol/L Potassium (3.6-5.0) mmol/L Chloride (98-107) mmol/L Carbon Dioxide (22-30) mmol/L Anion Gap mmol/L BUN (7-17) mg/dL Creatinine (0.6-1.2) mg/dL Estimated GFR ml/min BUN/Creatinine Ratio % Glucose (65-100) mg/dL Calcium (8.4-10.2) mg/dL Total Bilirubin (0.1-1.2) mg/dL AST (5-40) units/L ALT (7-56) units/L Alkaline Phosphatase (35-129) units/L Total Protein (6.3-8.2) g/dL Albumin (3.9-5) g/dL Albumin/Globulin Ratio % HCG, Quant (0-4) mIU/mL Blood Type A POSITIVE - Radiology Data [facility] [address] [place] [address] Ultrasound Report Signed Patient: AKASH ZIMMERMAN MR#: [id number] : 1995 Acct:[id number] Age/Sex: 25 / F ADM Date: 10/29/20 Loc: ED Attending Dr: Ordering Physician: SONU AMARAL Date of Service: 10/29/20 Procedure(s): US OB transvaginal Accession Number(s): [id number] cc: SONU AMARAL ULTRASOUND OBSTETRIC INDICATION / CLINICAL INFORMATION: Ectopic . Clinical Gestational Age (GA): 8 weeks 5 days TECHNIQUE: Transvaginal. COMPARISON: None available. FINDINGS: UTERUS: The uterus is anteverted and anteflexed and normal in appearance. The endometrium is within normal limits, measuring up to 4 mm in thickness. There is no evidence of intrauterine gestational sac. ADNEXA: The left ovary is unremarkable in appearance. A corpus luteum is identified within the right ovary. There is a complex mass adjacent to the right ovary measuring up to approximately 2.5 x 2.0 cm. There is a central cystic component measuring up to 9 mm which may reflect a gestational sac. No definite yolk sac or pole are identified within the cystic component. FREE FLUID: Trace pelvic free fluid. ADDITIONAL FINDINGS: None. IMPRESSION: 1. A complex mass adjacent to the right ovary is suggestive of an ectopic . No sonographic evidence for rupture. The above finding was discussed with TERESSA Palafox, at 4:19 PM central time on 10/29/2020. Signer Name: Elayne Nieves MD Signed: 10/29/2020 5:22 PM Workstation Name: [id number] - Medical Decision Making Patient does have evidence of ectopic . She will receive first dose of methotrexate today and follow-up with her primary care physician. Critical care attestation.: If time is entered above; I have spent that time in minutes in the direct care of this critically ill patient, excluding procedure time. ED Disposition Clinical Impression: Ectopic Disposition: DC-01 TO HOME OR SELFCARE Is pt being admited?: No Does the pt Need Aspirin: No Condition: Stable Instructions: Abdominal Pain (ED), Methotrexate Treatment for an Ectopic , Care After, Ectopic Referrals: OSMAN BERNABE MD [Staff Physician] - 3-5 Days Forms: Methotrexate D/C Instructions Time of Disposition: 18:34
[2020-10-29 19:07] VITALS: BP 133/85
== END 2020-10-29 19:05 | disposition home or self-care (01) ==
LOC: ED 15:09
DX: O00.90 Unspecified ectopic pregnancy without intrauterine pregnancy (principal); Z79.1 Long term (current) use of non-steroidal anti-inflammatories (NSAID); Z79.899 Other long term (current) drug therapy; Z3A.00 Weeks of gestation of pregnancy not specified
CPT/HCPCS: 36415; 76801; 76817; 80053; 84702; 85007; 85025; 86900; 86901; 96372; 99284; J9260

== ENCOUNTER 2022-05-31 08:39 | Emergency (ER) | payer OTHER, MEDICAID ==
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
[2022-05-31] MEDS ORDERED: ACETAMINOPHEN 325 MG TAB PO ONE (11:52)
[2022-05-31 12:51] VITALS: BP 131/60
== END 2022-05-31 12:51 | disposition home or self-care (01) ==
LOC: ED 08:39
DX: O26.892 Other specified pregnancy related conditions, second trimester (principal); M54.6 Pain in thoracic spine; O26.812 Pregnancy related exhaustion and fatigue, second trimester; Z3A.24 24 weeks gestation of pregnancy; V87.7XXA Person injured in collision between other specified motor vehicles (traffic), initial encounter; Y93.89 Activity, other specified; Y92.488 Other paved roadways as the place of occurrence of the external cause; Y99.8 Other external cause status
CPT/HCPCS: 99282

== ENCOUNTER 2022-05-31 13:07 | Outpatient (CLI) | payer OTHER, MEDICAID ==
[2022-05-31 16:46] VITALS: BP 123/61
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
== END 2022-05-31 16:58 | disposition home or self-care (01) ==
LOC: TRG 13:07 → APU 13:08 → TRG 16:58
PROVIDERS: ATTEND Obstetrics & Gynecology
DX: Z34.93 Encounter for supervision of normal pregnancy, unspecified, third trimester (principal); Z3A.27 27 weeks gestation of pregnancy
CPT/HCPCS: 59025; 76815